=== PATIENT | male | born 1965 | race Caucasian/White ===

== ENCOUNTER 2020-11-27 07:30 | Emergency (ER) | payer OTHER ==
[~2020-11-27] VITALS: Ht 180.3 cm; Wt 83.9 kg
== END 2020-11-27 13:21 | disposition home or self-care (01) ==
LOC: ER 07:30
DX: L30.8 Other specified dermatitis (principal); L53.8 Other specified erythematous conditions; G25.2 Other specified forms of tremor; R53.81 Other malaise; T63.624A Toxic effect of contact with other jellyfish, undetermined, initial encounter; Y92.832 Beach as the place of occurrence of the external cause